=== PATIENT | male | born 1935 | race Caucasian/White ===

== ENCOUNTER 2017-03-20 06:01 | Day surgery (SDC) | payer MEDICARE, OTHER ==
--- NOTE | ~2017-03-20 | EGD ---
EGD REPORT [facility] [address] [place] [address] NAME: KAR MCCOY : 31 STATUS : REG [facility] [place] PAT#: [id number] AGE: 81 ADM/REG DATE : 03/20/17 MR#: [id number] REPORT SERV DATE: 03/20/17 DICTATED BY: TYLER ADAME DATE: 03/20/17 REPORT STATUS : Draft TRANSCRIBED BY: [facility] DATE: 03/20/17 [facility] Center Patient Name: Kar Mccoy Date of : 1935 Attending MD: TYLER ADAME MD Procedure Date No Time: 03/20/2017 Procedure: Colonoscopy Indications: Surveillance: History of piecemeal removal adenoma on last colonoscopy (< 1 yr) Referring MD: Mack Samayoa Medicines: See the Anesthesia note for documentation of the administered medications Complications: No immediate complications. Procedure: Pre-Anesthesia Assessment: - ASA Grade Assessment: III - A patient with severe systemic disease. After I obtained informed consent, the scope was passed under direct vision. Throughout the procedure, the patient's blood pressure, pulse, and oxygen saturations were monitored continuously. The [facility] [id number] was introduced through the anus and advanced to the terminal ileum, with identification of the appendiceal orifice and IC valve. The colonoscopy was technically difficult and complex due to significant looping. Findings: The perianal and digital rectal examinations were normal. The terminal ileum appeared normal. Internal hemorrhoids were found during retroflexion. Tortuous colon with looping A sessile polyp was found in the transverse colon. The polyp was small in size. The polyp was removed with a cold biopsy forceps. Resection and retrieval were complete. Three sessile polyps were found in the sigmoid colon. The polyps were small in size. These polyps were removed with a cold biopsy forceps. Resection and retrieval were complete. Impression: - The examined portion of the ileum was normal. - Internal hemorrhoids. - Tortuous colon with looping - One small polyp in the transverse colon. Resected and retrieved. - Three small polyps in the sigmoid colon. Resected and retrieved. EGD REPORT [address] [address] NAME: KAR MCCOY : 31 STATUS : REG [facility]#: [id number] AGE: 81 ADM/REG DATE : 03/20/17 MR#: [id number] REPORT SERV DATE: 03/20/17 DICTATED BY: TYLER ADAME DATE: 03/20/17 REPORT STATUS : Draft TRANSCRIBED BY: [employer] DATE: 03/20/17 Recommendation: - Patient has a contact number available for emergencies. The signs and symptoms of potential delayed complications were discussed with the patient. Return to normal activities tomorrow. Written discharge instructions were provided to the patient. - Regular diet. - Continue present medications. - Repeat colonoscopy for surveillance based on pathology results. - FOR YOUR BIOPSY RESULTS: Please go to [email or web address] and register to receive your results via the portal. Your biopsy results will be posted there in about 7 to 10 days. IF you do not see result in 10 days, call office. Procedure Code(s): --- Professional --- 90469, Colonoscopy, flexible, proximal to splenic flexure; with biopsy, single or multiple Diagnosis Code(s): --- Professional --- K64.8, Other hemorrhoids D12.5, Benign neoplasm of sigmoid colon D12.3, Benign neoplasm of transverse colon Z86.010, Personal history of colonic polyps CPT copyright 2013 [employer]. All rights reserved. The codes documented in this report are preliminary and upon car repairer apprentice review may be revised to meet current compliance requirements. Tyler Adame MD TYLER ADAME MD 03/20/2017 8:46 AM This report has been signed electronically. Number of Addenda: 0 Note Initiated On: 03/20/2017 8:05 AM Scope Withdrawal Time 0 hours 21 minutes 43 seconds [address] [place] [address]
[~2017-03-20 06:01] MED LIST: ASAB PO; FERREX 150150 MG PO; FISH-EPA1000 MG PO; GERIATRIC HP PO; L20 PO; MELA3 PO; METAMUCIL CAN7 OZ PO; MULTIPLE VIT PO; OS500+D PO
== END 2017-03-20 23:59 | disposition home or self-care (01) ==
LOC: DMU 06:01
PROVIDERS: Internal Medicine Gastroenterology
PROC: 0DBN8ZZ Excision of Sigmoid Colon, Via Natural or Artificial Opening Endoscopic (ICD-10-PCS; 2017-03-20)
PROC: 0DBL8ZZ Excision of Transverse Colon, Via Natural or Artificial Opening Endoscopic (ICD-10-PCS; principal; 2017-03-20 08:30)
DX: Z12.11 Encounter for screening for malignant neoplasm of colon (principal); K63.5 Polyp of colon; K64.8 Other hemorrhoids; Z86.010 Personal history of colon polyps; I10 Essential (primary) hypertension; D64.9 Anemia, unspecified; Z98.49 Cataract extraction status, unspecified eye; Z98.890 Other specified postprocedural states; N40.0 Benign prostatic hyperplasia without lower urinary tract symptoms; M19.90 Unspecified osteoarthritis, unspecified site; M54.2 Cervicalgia; G40.89 Other seizures; Z98.41 Cataract extraction status, right eye; Z98.42 Cataract extraction status, left eye; Z96.1 Presence of intraocular lens; Z87.891 Personal history of nicotine dependence
CPT/HCPCS: 88305